=== PATIENT | female | born 1980 | race Caucasian/White ===

== ENCOUNTER 2024-03-15 06:22 | Day surgery (SDC) | payer OTHER, SELFPAY ==
[2024-03-13 08:55] VITALS: BMI 32.5
[2024-03-13 10:09] LABS: Hematocrit 38.1 % (37.0-47.0); Hemoglobin 12.8 g/dL (12.0-16.0); Mean Corp Hgb Conc. 33.6 g/dL (33.0-37.0); Mean Corpuscular Hgb 28.8 pg (27.0-31.0); Mean Corpuscular Volume 85.8 fL (81.0-99.0); Mean Platelet Volume 10.7 fL (7.4-10.4); Platelet Count 234 10^3/uL (130-400); Red Blood Cell Count 4.44 10^6/uL (4.20-5.40); Red Cell Dist. Width 13.2 % (11.5-14.5); White Blood Cell Count 6.6 10^3/uL (4.8-10.8)
[2024-03-13 10:32] LABS: ALT (SGPT) 16 U/L (0-35); AST (SGOT) 18 U/L (14-36); Albumin 4.9 g/dl (3.5-5.0); Alkaline Phosphatase 71 U/L (38-126); Blood Urea Nitrogen 14 mg/dl (7-17); Calcium 9.7 mg/dl (8.4-10.2); Carbon Dioxide 27 mmol/L (22-30); Chloride 101 mmol/L (98-107); Estimated Creatinine Clearance 98 ml/min; Glucose 122 mg/dl (70-99); Potassium 4.2 mmol/L (3.5-5.1); Sodium 138 mmol/L (135-145); Total Bilirubin 0.3 mg/dl (0.2-1.3); Total Protein 7.2 g/dl (6.3-8.2); eGFR > 60.00
[2024-03-15 07:56] VITALS: BMI 32.5
[2024-03-15] MEDS: NORMOSOL-R 1000 IV (08:08)
[2024-03-15] MEDS: TYLENOL 1000 MG PO (08:08)
[2024-03-15 11:22] VITALS: BP 119/79
[2024-03-15 11:30] VITALS: BP 121/83
[2024-03-15 11:45] VITALS: BP 127/86
[2024-03-15 12:00] VITALS: BP 120/92
[2024-03-15 12:47] VITALS: BP 123/84
[2024-03-15] MEDS: MOTRIN 600 MG PO (13:02)
== END 2024-03-15 13:10 | disposition home or self-care (01) ==
LOC: SDS 06:22
PROVIDERS: ATTENDING PHYSICIAN Surgery; FAMILY PHYSICIAN Student in an Organized Health Care Education/Training Program
DX: K64.8 Other hemorrhoids (principal); K64.4 Residual hemorrhoidal skin tags; K64.2 Third degree hemorrhoids
CPT/HCPCS: 46260; 88304; 36415; 80053; 85027